=== PATIENT | female | born 1950 | race Caucasian/White ===

== ENCOUNTER 2018-01-02 07:15 | Outpatient (CLI) | payer OTHER | END 2018-01-02 07:30 | disposition home or self-care (01) | LOC: TOM 07:15 → EDBD 07:15 → TOM 07:30 | DX: K56.50 Intestinal adhesions [bands], unspecified as to partial versus complete obstruction (principal); R19.5 Other fecal abnormalities ==

== ENCOUNTER 2025-01-17 11:13 | Emergency (ER) | payer OTHER ==
[~2025-01-17] VITALS: Ht 152.4 cm; Wt 46.7 kg
[2025-01-17] MEDS ORDERED: TRIAMCINOLONE ACETONIDE 40 MG/ML VIAL ONE (12:06)
[2025-01-17] MEDS ORDERED: TRIAMCINOLONE ACETONIDE 40 MG/ML VIAL IM ONE (12:15)
[2025-01-17 12:31] LABS: BASO % 0.6 % (0.1-1.2); EOS # 0.38 (0.04-0.54); EOS % 4.2 % (0.7-7.0); HEMATOCRIT 33.1 % (34.1-44.9); HEMOGLOBIN 11.1 g/dL (11.2-15.7); LYMPH # 1.73 (1.18-3.74); LYMPH % 19.2 % (19.3-53.1); MEAN CORPUSCULAR HEMOGLOBIN 30.2 pg (25.6-32.2); MONO # 0.62 (0.24-0.82); MONO % 6.9 % (4.7-12.5); NEUT # 6.21 (1.56-6.13); NEUT % 68.9 % (34.0-71.1); PLATELET COUNT 358 K/uL (163-369); RED BLOOD COUNT 3.68 M/uL (3.93-5.22); RED CELL DISTRIBUTION WIDTH 12.3 % (11.6-14.4)
[2025-01-17 12:40] LABS: ERYTHROCYTE SEDIMENTATION RATE > 130 mm/hr (0-30)
[2025-01-17 13:10] LABS: C-REACTIVE PROTEIN 5.42 MG/DL (0.00-0.29); URIC ACID 2.1 mg/dL (2.5-7.5)
[2025-01-17] MEDS ORDERED: MEDROLPACK PO (13:15)
== END 2025-01-17 14:04 | disposition home or self-care (01) ==
LOC: ER 11:44
PROVIDERS: General Practice
DX: M79.641 Pain in right hand (principal); I10 Essential (primary) hypertension; Z88.1 Allergy status to other antibiotic agents
CPT/HCPCS: 36415; 73130; 96372; 99283; J3301